=== PATIENT | male | born 1990 | race Caucasian/White ===

== ENCOUNTER 2019-05-30 04:53 | Emergency (ER) | payer OTHER ==
[~2019-05-30] VITALS: Ht 182.9 cm; Wt 51.3 kg
[2019-05-30 04:54] VITALS: BP 141/75; Ht 182.9 cm; Wt 51.3 kg
== END 2019-05-30 05:27 | disposition other institution (70) ==
LOC: ED 04:53
DX: Z02.89 Encounter for other administrative examinations (principal)